=== PATIENT | male | born 1955 | race Caucasian/White ===

== ENCOUNTER 2016-12-29 05:47 | Day surgery (SDC) | payer OTHER ==
[2016-12-22 16:20] VITALS: BMI 31.3
[2016-12-29] MEDS ORDERED: SODIUM CHLORIDE 0.9% 1,000 ML IV SCH ×2 (05:57→08:00)
[2016-12-29 06:52] VITALS: TEMP 98.8
[2016-12-29] MEDS ORDERED: fentaNYL (PF) 50 MCG/ML 2 ML AMP ONE (07:28)
[2016-12-29] MEDS ORDERED: LIDOCAINE 1% INJ 10MG/ML (20 ML MDV) ONE (07:28)
[2016-12-29] MEDS ORDERED: PROPOFOL 10 MG/ML 20 ML VIAL IV ONE (07:28)
[2016-12-29] MEDS ORDERED: BENZOCAINE SPRAY 100 APPLIC/CAN MUCOUS MEM ONE ×2 (07:30→07:32)
[2016-12-29] MEDS ORDERED: SODIUM CHLORIDE 0.9% 500 ML IV ONE (07:30)
[2016-12-29 07:36] LABS: Potassium 5.1 mmol/L (3.5-5.1)
[2016-12-29] MEDS ORDERED: IBUPROFEN 200 MG TAB PO SCH (09:00)
[2016-12-29] MEDS ORDERED: BRINZOLAMIDE LEFT EYE SCH (09:00)
[2016-12-29] MEDS ORDERED: FUROSEMIDE 20 MG TAB PO SCH (09:00)
[2016-12-29] MEDS ORDERED: APIXABAN 5 MG TAB PO SCH (09:00)
[2016-12-29] MEDS ORDERED: TIMOLOL BOTH EYES SCH (09:00)
[2016-12-29] MEDS ORDERED: NON-FORMULARY DRUG (Omeprazole 20 MG) PO SCH (09:00)
[2016-12-29] MEDS ORDERED: MULTIVIT MIN PO SCH (09:00)
[2016-12-29] MEDS ORDERED: LYCOPENE PO SCH (09:00)
[2016-12-29] MEDS ORDERED: [UNRECOGNIZED DRUG - OTHER] PO SCH (09:00)
[2016-12-29] MEDS ORDERED: LUT PO SCH (09:00)
[2016-12-29 09:02] VITALS: PULSE 42; RESP 18
[2016-12-29 09:05] VITALS: BP 106/58
--- NOTE | 2016-12-29 10:15 | ECHOT ---
DATE OF SERVICE: 12/29/2016 CLINICAL INFORMATION: INDICATION: Evaluation of left atrial appendage. PROCEDURE: After explaining the procedure to patient as well as risks and complications, his blood pressure, heart rate, O2 saturation were monitored. The throat was sprayed with Cetacaine, after receiving sedation state per anesthesia department, the probe was introduced into the esophagus without difficulty. Images were obtained. Following that, the probe was removed. There were no immediate complications. FINDINGS: Left atrial size is dilated. Left atrial appendage is normal. Severe spontaneous contrast was noted. The aortic valve appears to be normal. Evidence of mitral valve repair was noted. Tricuspid valve is normal. The descending thoracic aortic appears to be normal. There was no pericardial effusion. The left ventricular systolic function was mildly impaired with mild global hypokinesis with an ejection fraction of 45 to 50%. Contrast bubble study revealed no evidence of shunting across the interatrial septum. Doppler pulse wave obtained revealed no evidence of shunting across the interatrial septum. There is mild tricuspid regurgitation. CONCLUSION: 1. Dilated left atrium with normal appearance of left atrial appendage and evidence of severe spontaneous contrast. 2. Mitral valve repair with no evidence of significant regurgitation. 3. Mild global hypokinesis. 4. No evidence of shunting across the interatrial septum. 5. Normal appearance of the descending thoracic aorta. 6. No pericardial effusion. MTDD
--- NOTE | 2016-12-29 10:17 | CE ---
DATE OF SERVICE: 12/29/2016 INDICATION: Atrial fibrillation. After explaining the procedure to the patient as well as risks and complications, his blood pressure, heart rate, O2 saturation was monitored. After obtaining sedated state by anesthesia department and performing transesophageal echocardiogram, a synchronized biphasic cardioversion using 200 joules was performed with holiness of normal sinus rhythm. There was no immediate complication.
[2016-12-29] MEDS ORDERED: ATENOLOL 50 MG TAB PO SCH (21:00)
[2016-12-29] MEDS ORDERED: LATANOPROST 0.005% OPHTH DROPS 2.5 ML BTL BOTH EYES SCH (21:00)
[2016-12-29] MEDS ORDERED: LISINOPRIL 20 MG TAB PO SCH (21:00)
== END 2016-12-29 10:45 | disposition home or self-care (01) ==
LOC: CATHCVL 05:47
PROVIDERS: ATTEND Internal Medicine Interventional Cardiology
DX: I07.1 Rheumatic tricuspid insufficiency (principal); I48.2 Chronic atrial fibrillation; Z79.01 Long term (current) use of anticoagulants; I71.2 Thoracic aortic aneurysm, without rupture; I42.9 Cardiomyopathy, unspecified; I49.9 Cardiac arrhythmia, unspecified; I10 Essential (primary) hypertension; I73.9 Peripheral vascular disease, unspecified; I82.409 Acute embolism and thrombosis of unspecified deep veins of unspecified lower extremity; I38 Endocarditis, valve unspecified; Z79.02 Long term (current) use of antithrombotics/antiplatelets; Z79.899 Other long term (current) drug therapy; E78.5 Hyperlipidemia, unspecified; H40.9 Unspecified glaucoma; K21.9 Gastro-esophageal reflux disease without esophagitis
CPT/HCPCS: 93312; 93320; 93005; 93325; 92960; 80048; J2001; J3010; J2704; 99152

== ENCOUNTER → 2017-03-04 | Outpatient (CLI) | payer OTHER ==
--- NOTE | 2017-03-04 16:36 | CONS ---
DATE OF CONSULTATION: CONSULTATION/NEW PATIENT EVALUATION A 62-year-old gentleman who has been evaluated in the Sleep Center for possible obstructive sleep apnea-hypopnea syndrome. HISTORY OF PRESENT ILLNESS/SLEEP-WAKE EVALUATION: SLEEP SCHEDULE: Patient's usual sleep schedule is from 10:00 p.m. to 7:00 a.m. FALLING ASLEEP: He does not have any problem with falling asleep. No TV in bedroom. DURING SLEEP: He sleeps in different positions with his . He wakes up from sleep 2 times with nocturia. He has quite loud snoring with possible episodes of stopped breathing during the sleep. DURING THE DAY/WAKE STATE: During the day, he usually does not take any naps. [place] Sleepiness Scale is 6. PAST MEDICAL HISTORY: Positive for atrial fibrillation with sinus, converted to normal sinus by cardioversion, hypertension, glaucoma, stones in gallbladder. MEDICATIONS: Eliquis, amiodarone, lisinopril, atenolol, Advil, eyedrops for glaucoma. PAST SURGICAL HISTORY: None. He was prepared for cholecystectomy, but because he developed a atrial fibrillation it was not done. SOCIAL HISTORY: Negative for smoking. Alcohol consumption, occasional. REVIEW OF SYSTEMS: Awakenings from sleep, snoring, sometimes tiredness and sleepiness during the day. No fevers. No double vision. No recent chest pain. No shortness of breath. No abdominal pain. No bleeding episodes. No blood in urine. No seizure episodes. FAMILY HISTORY: Hypertension, heart problems, stroke, arthritis, bronchitis, sleep apnea, snoring, headaches, acid reflux, restless legs. PHYSICAL EXAMINATION: GENERAL: During physical exam, gentleman without distress. VITAL SIGNS: BP 141/69, HR 52, RR 16. Height 5 feet 4 inches. Weight 206. BMI 35.3. Neck 17-1/4 inches in circumference. Temp is 98.1. Oxygen saturation at room air 98%. HEENT: PERRLA, EOMI. Evaluation of oropharynx showed extremely low position of soft palate. NECK: Supple. No JVD. Thyroid is not palpable. LUNGS: Clear to percussion and to auscultation. Good air exchange. No wheezing or rhonchi. HEART: S1, S2 regular. No murmurs, gallops or rubs. ABDOMEN: Obese. Soft and nontender. Bowel sounds are present. No organomegaly appreciated. EXTREMITIES: 1+ ankle edema. No clubbing or cyanosis. BIOLOGICAL INSPECTOR: Awake, alert, and oriented x3. Cranial nerves 2 to 7 intact. There is no fasciculation or atrophy noted. No focal deficits observed. IMPRESSION: 1. Snoring awakenings from sleep with nocturia, low position of soft palate, possibly witnessed episodes of stopped breathing during sleep, obstructive sleep apnea-hypopnea syndrome. 2. Obesity; body mass index 35.3. 3. History of atrial fibrillation converted to normal sinus rhythm by cardioversion. 4. Hypertension. 5. Glaucoma. 6. History of stones in gallbladder. 7. Swelling of legs 1+. PLAN: 1. Polysomnography for evaluation of patient's breathing during sleep. 2. CPAP/BiPAP titration if sleep study confirms obstructive sleep apnea-hypopnea syndrome. 3. Preferable position during sleep on the side. 4. No driving if patient feels any sleepiness. Patient is aware of civil and criminal liability for unsafe driving. 5. I will see patient for follow-up visit to explain results of the testing and following plan. Thank you very much for referring this patient for consultation. Sincerely, Farooq Alston MD, PhD, FAASM. Diplomat of [place] [employer], Sleep Medicine Board by [employer] Worker of [facility] [place]
== END | disposition home or self-care (01) ==
LOC: SLEEP 13:27
PROVIDERS: ATTEND Internal Medicine
DX: R35.1 Nocturia (principal); I10 Essential (primary) hypertension; E66.9 Obesity, unspecified; Z68.35 Body mass index [BMI] 35.0-35.9, adult; Z79.1 Long term (current) use of non-steroidal anti-inflammatories (NSAID); Z79.899 Other long term (current) drug therapy; Z79.01 Long term (current) use of anticoagulants
CPT/HCPCS: 99211

== ENCOUNTER → 2017-03-11 | Outpatient (CLI) | payer OTHER ==
[2017-03-11 10:08] LABS: Calcium 9.8 mg/dL (8.4-10.2); Potassium 5.1 mmol/L (3.5-5.1); Total Bilirubin 0.9 mg/dL (0.2-1.3); Total Protein 8.3 g/dL (6.3-8.2)
== END | disposition home or self-care (01) ==
LOC: LABWHC1 09:12
PROVIDERS: ATTEND Internal Medicine Interventional Cardiology
DX: I48.0 Paroxysmal atrial fibrillation (principal)
CPT/HCPCS: 36415; 80053; 84443

== ENCOUNTER → 2017-08-05 | Outpatient (CLI) | payer OTHER ==
--- NOTE | 2017-08-05 23:06 | PN ---
PROGRESS NOTE DATE OF SERVICE: 08/05/2017 This patient is a 62-year-old gentleman who has been followed in the sleep center for treatment of severe obstructive sleep apnea-hypopnea syndrome. Recently patient had a home sleep apnea test and CPAP titration. I discussed the results of these tests with the patient in detail. Apnea-hypopnea index during the home sleep study test was 65.7 with oxygen desaturation to 58%. The patient was started on treatment with CPAP. He brought his CPAP unit with him today. According to him, he is able to use the equipment every night for the whole night and he feels extreme improvements while he is using CPAP, compared with his previous experience. He sleeps better. He feels significantly better during the day. He takes his machine with him while he is traveling. I checked his CPAP unit. CPAP pressure is 14 cm of water. Usage is 30 out of 30 nights for more than 4 hours; average 7.7 hours. Apnea-hypopnea index reading from the machine is only 2.2, which is in normal range. Leak is borderline at 37 L/minute. The patient is using a full-face mask. [place] Sleepiness Scale today is 1. MEDICATIONS: 1. Eliquis. 2. Amiodarone. 3. Lisinopril. 4. Atenolol. 5. Advil. 6. Eye drops. PHYSICAL EXAM: The patient is a pleasant 62-year-old gentleman without distress. VITAL SIGNS: BP 142/77, HR 62, RR 16, weight 209, temperature 97.8. Oxygen saturation at room air 98%. HEENT: PERRLA, EOMI. Evaluation of oropharynx showed tongue protrudes midline; extremely low position of soft palate. NECK: Supple. No JVD. Thyroid is not palpable. LUNGS: Clear to percussion and to auscultation. Good air exchange. No wheezing or rhonchi. HEART: S1, S2 irregularly irregular. ABDOMEN: Soft, non-tender. Bowel sounds present. EXTREMITIES: No clubbing or cyanosis. AMBULATORY SERVICE REPRESENTATIVE: Awake, alert and oriented x3. Cranial nerves 2 to 7 intact. There is no fasciculation or atrophy noted. No focal deficits observed. IMPRESSION: 1. Severe obstructive sleep apnea-hypopnea syndrome; apnea-hypopnea index 68.7 with oxygen desaturation to 58%, controlled with CPAP at 14 cm of water. Patient demonstrated 100% compliance with treatment, benefitting from treatment. 2. Obesity. 3. Some periodic limb movements have been documented during titration. No clinical problems with any kicking at night. 4. History of atrial fibrillation. 5. Hypertension. 6. Glaucoma. 7. One plus ankle edema. PLAN: 1. Continue treatment with CPAP every night for the whole night. 2. Losing weight. 3. Sleep hygiene with regular time in bed for at least 8 hours. 4. No driving if feeling any sleepiness. 5. Follow-up visit in 10 months or earlier if patient has any problems. Thank you very much for allowing me to participate in the management of your patient. Sincerely, Farooq Alston MD, PhD, FAASM Diplomat of [place] [employer] [employer] [place] [employer] Home Health Billing Specialist of [facility] [place] CATHERINE / WILDA: [id number] /
== END ==
LOC: SLEEP 15:30
PROVIDERS: ATTEND Internal Medicine
DX: G47.33 Obstructive sleep apnea (adult) (pediatric) (principal); E66.9 Obesity, unspecified; G47.61 Periodic limb movement disorder; I10 Essential (primary) hypertension; H40.9 Unspecified glaucoma; R60.0 Localized edema; Z79.899 Other long term (current) drug therapy

== ENCOUNTER → 2017-08-23 | Outpatient (CLI) | payer OTHER ==
--- NOTE | 2017-08-23 12:02 | CT ---
EXAMINATION TYPE: CT angio chest DATE OF EXAM: 08/23/2017 COMPARISON: 07/17/2015 HISTORY: Patient has no complaints at time of study. Follow up for known aortic aneurysm. CT DLP: 937.9 mGycm CONTRAST: CTA thoracic aorta with 3-D reconstruction is performed and with IV Contrast, patient injected with 1 00 mL of Omnipaque 350. Contrast CTA of the thoracic aorta was performed from the lung apex through the upper abdomen. 3D re construction imaging obtained at a separate workstation. CT Chest: THORACIC AORTA: Stable 4 cm ascending thoracic aortic aneurysm without complicating factor. Aortic ar ch and descending thoracic aorta are normal caliber. Mild atheromatous changes seen. There is no patricia dence for dissection or periaortic collection. LUNGS: The lungs are clear and free of infiltrate or atelectasis. No pulmonary nodule or mass is det ected. No pleural effusion or CT evidence of interstitial lung disease. MEDIASTINUM: No evidence for mediastinal hematoma. The heart is not enlarged. No evidence for med iastinal mass or adenopathy. HILAR STRUCTURES: No evidence for mass. No hilar adenopathy is appreciated. OTHER: No significant abnormality. IMPRESSION- Stable ascending thoracic aortic aneurysm without complicating factor.
== END | disposition home or self-care (01) ==
LOC: RADCTMAIN 10:53
PROVIDERS: ATTEND Internal Medicine Interventional Cardiology
DX: I71.2 Thoracic aortic aneurysm, without rupture (principal)
CPT/HCPCS: 71275; Q9967

== ENCOUNTER → 2018-08-10 | Outpatient (CLI) | payer MEDICARE, OTHER ==
--- NOTE | 2018-08-10 20:22 | US ---
EXAMINATION TYPE: US kidneys/renal and bladder DATE OF EXAM: 08/10/2018 COMPARISON: CT, US ABD limited CLINICAL HISTORY: R94.4 Abnoral Results of Kidney Function Studies. Recent abnormal labs EXAM MEASUREMENTS: Right Kidney: 9.6 x 5.1 x 4.2 cm Left Kidney: 10.3 x 5.4 x 4.3 cm Right Kidney: ?small amount of perinephric edema anterior to kidney, otherwise appeared wnl Left Kidney: ?small amount of perinephric edema anterior to kidney, otherwise appeared wnl Bladder: wnl Bilateral Jets seen: No IMPRESSION: We could not demonstrate ureteral jets. Urinary bladder appears normal. There is possible perinephric edema that could relate to medical renal disease. No hydronephrosis. Po ssible edema is a change compared to the abdomen ultrasound of 09/04/2016.
== END | disposition home or self-care (01) ==
LOC: RADUSWWP 16:06
PROVIDERS: ATTEND Internal Medicine Geriatric Medicine
DX: N28.9 Disorder of kidney and ureter, unspecified (principal)
CPT/HCPCS: 76770

== ENCOUNTER 2018-08-16 06:23 | Day surgery (SDC) | payer MEDICARE, OTHER ==
[2018-08-09 12:41] VITALS: BMI 32.3
[~2018-08-16 06:23] MED LIST: SODIUM CHLORIDE 0.9% 1,000 ML IV SCH
[2018-08-16 07:07] VITALS: TEMP 98.7
[2018-08-16] MEDS ORDERED: PROPOFOL 10 MG/ML 20 ML VIAL IV ONE (07:23)
[2018-08-16] MEDS ORDERED: LIDOCAINE 1% INJ 10MG/ML (20 ML MDV) ONE (07:23)
[2018-08-16] MEDS ORDERED: fentaNYL (PF) 50 MCG/ML 2 ML AMP ONE (07:23)
[2018-08-16 07:34] LABS: Calcium 9.3 mg/dL (8.4-10.2)
[2018-08-16 07:40] LABS: Potassium 5.2 mmol/L (3.5-5.1)
[2018-08-16] MEDS ORDERED: SODIUM CHLORIDE 0.9% 1,000 ML IV SCH (08:00)
[2018-08-16 08:04] VITALS: RESP 18
[2018-08-16] MEDS ORDERED: LEVOTHYROXINE 100 MCG TAB PO SCH (09:00)
[2018-08-16] MEDS ORDERED: MAGNESIUM 500 MG PO SCH (09:00)
[2018-08-16] MEDS ORDERED: INSTAFLEX PO SCH (09:00)
[2018-08-16] MEDS ORDERED: NON-FORMULARY DRUG (Multivit-Min/Fa/Lycopen/Lutein [Centrum Silver Tablet] 1 EACH) PO SCH (09:00)
[2018-08-16] MEDS ORDERED: ALLOPURINOL 100 MG TAB PO SCH (09:00)
[2018-08-16] MEDS ORDERED: IBUPROFEN 200 MG TAB PO SCH (09:00)
[2018-08-16] MEDS ORDERED: TIMOLOL BOTH EYES SCH (09:00)
[2018-08-16] MEDS ORDERED: APIXABAN 5 MG TAB PO SCH (09:00)
[2018-08-16] MEDS ORDERED: BRINZOLAMIDE LEFT EYE SCH (09:00)
[2018-08-16 09:17] VITALS: PULSE 50
--- NOTE | 2018-08-16 09:48 | PCN ---
PROCEDURE NOTE INDICATION: Atrial fibrillation. PROCEDURE: After obtaining transthoracic echocardiogram, obtaining sedated state per Anesthesia Department, a synchronized biphasic 200 joule cardioversion was performed with christianity normal sinus rhythm. There was no immediate complication. CATHERINE / MICHELLEN: [id number] /
--- NOTE | 2018-08-16 09:55 | ECHOT ---
TRANSESOPHAGEAL ECHOCARDIOGRAM INDICATION: Atrial fibrillation. PROCEDURE: After explaining the procedure to the patient, its risks and complications, blood pressure, heart rate, O2 saturation was monitored. The throat was sprayed with Cetacaine. He received sedation per the Anesthesia Department. The probe was introduced into the esophagus without difficulty. Images were obtained. Following that, the probe was removed. There was no immediate complication. FINDINGS: Severe biatrial enlargement was noted, more noted on the left atrium with severe spontaneous contrast. The left atrial appendage is large with spontaneous contrast. The aortic valve revealed mild thickening of the tricuspid aortic valve. Evidence of mitral annuloplasty was noted with mild thickening of the mitral valve leaflets. The tricuspid valve is normal. The left ventricular size and is normal systolic function was mildly impaired with ejection fraction 50%. The descending thoracic aorta appears to be normal. Contrast bubble study revealed no evidence of shunting across the interatrial septum. No pericardial effusion was noted. Doppler pulse was obtained revealed mild mitral and tricuspid regurgitation. There was no evidence of shunting by color Doppler study. MMODL / IJN: [id number] /
[2018-08-16 10:26] VITALS: BP 120/70
[2018-08-16] MEDS ORDERED: LISINOPRIL 20 MG TAB PO SCH (21:00)
[2018-08-16] MEDS ORDERED: LATANOPROST 0.005% OPHTH DROPS 2.5 ML BTL BOTH EYES SCH (21:00)
[2018-08-16] MEDS ORDERED: ATENOLOL 50 MG TAB PO SCH (21:00)
== END 2018-08-16 10:20 | disposition home or self-care (01) ==
LOC: CATHCVL 06:23
PROVIDERS: ATTEND Internal Medicine Interventional Cardiology
DX: I08.1 Rheumatic disorders of both mitral and tricuspid valves (principal); I48.1 Persistent atrial fibrillation; I42.8 Other cardiomyopathies; I10 Essential (primary) hypertension; I71.2 Thoracic aortic aneurysm, without rupture; G47.33 Obstructive sleep apnea (adult) (pediatric); Z98.890 Other specified postprocedural states; Z79.01 Long term (current) use of anticoagulants; Z79.890 Hormone replacement therapy; Z79.899 Other long term (current) drug therapy
CPT/HCPCS: 93312; 93320; 93325; 92960; 80048; J2001; J3010; J2704

== ENCOUNTER → 2018-09-01 | Outpatient (CLI) | payer MEDICARE, OTHER ==
--- NOTE | 2018-09-01 18:38 | PN ---
PROGRESS NOTE DATE OF SERVICE: 09/01/2018 This patient is a 63-year-old gentleman who has been followed in Sleep Center for treatment of severe obstructive sleep apnea-hypopnea syndrome. Patient is successfully continuing to use his CPAP equipment every night for the whole night, taking it with him for vacation. He sleeps well with it. [place] Sleepiness Scale today is only 1. I checked his CPAP unit. CPAP pressure is 14 cm of water. Usage is 100% of the nights for more than 4 hours. Average usage is 8.4 hours. Leak is only 14 L/minute, which is normal. Apnea-hypopnea index is 2.7, which is perfect. MEDICATIONS: Medications are the same: 1. Atenolol. 2. Eliquis. 3. Synthroid. 4. Advil. 5. Centrum Silver. 6. Lisinopril. 7. Eye drops. PHYSICAL EXAMINATION: GENERAL: A pleasant patient without any distress. VITAL SIGNS: BP 145/82, HR 59, RR 16, height 5 feet 3 inches, weight 204.2, body mass index 35.5, temperature 98.4, oxygen saturation at room air 97% HEENT: PERRLA, EOMI. Evaluation of oropharynx showed tongue protrudes midline. Extremely low position of soft palate. NECK: Supple. No JVD. Thyroid is not palpable. LUNGS: Clear to percussion and to auscultation. Good air exchange. No wheezing or rhonchi. HEART: S1, S2 regular. ABDOMEN: Soft and nontender. Bowel sounds are present. No organomegaly appreciated. EXTREMITIES: No clubbing or cyanosis. LOCK CORNER MACHINE OPERATOR: Awake, alert, and oriented X3. Cranial nerves 2 to 7 intact. There is no fasciculation or atrophy. noted. No focal deficits observed. IMPRESSION: 1. Severe obstructive sleep apnea-hypopnea syndrome, fully controlled with CPAP at 14 cm of water. Patient demonstrated 100% compliance with treatment, benefitting from treatment. 2. History of atrial fibrillation, status post cardioversion. Sounds normal sinus rhythm at the present time. 3. Hypertension. 4. History of glaucoma. 5. Obesity. Patient lost 8 pounds since his last visit one year ago. PLAN: 1. Continue treatment with CPAP with the same regimen of pressure every night for the whole night. 2. We will maintain prescriptions for all necessary CPAP supplies, including mask, tube, filters. 3. Continue losing weight. 4. No driving if feeling any sleepiness. 5. Regular cleaning of the machine and supplies. 6. Follow-up visit in one year. Thank you very much for allowing me to participate in the management of your patient. Sincerely, Farooq Alston MD, PhD, FAASM Diplomat of [place] [employer] [place] [employer] Mold Sprayer of [facility] [place] MMODL / MICHELLEN: [id number] /
== END | disposition home or self-care (01) ==
LOC: SLEEP 14:44
PROVIDERS: ATTEND Internal Medicine
DX: G47.33 Obstructive sleep apnea (adult) (pediatric) (principal); I10 Essential (primary) hypertension; E66.9 Obesity, unspecified; Z68.35 Body mass index [BMI] 35.0-35.9, adult; Z86.69 Personal history of other diseases of the nervous system and sense organs; Z86.79 Personal history of other diseases of the circulatory system; Z79.01 Long term (current) use of anticoagulants; Z79.899 Other long term (current) drug therapy; Z79.1 Long term (current) use of non-steroidal anti-inflammatories (NSAID); Z98.890 Other specified postprocedural states; Z99.89 Dependence on other enabling machines and devices

== ENCOUNTER → 2018-09-13 | Outpatient (CLI) | payer MEDICARE, OTHER ==
--- NOTE | 2018-09-14 08:16 | CT ---
EXAMINATION TYPE: CT angio chest DATE OF EXAM: 09/13/2018 COMPARISON: 08/23/2017 HISTORY: f/u aortic aneurysm CT DLP: 1098.7 mGycm. Automated Exposure Control for Dose Reduction was Utilized. CONTRAST: CTA scan of the thorax is performed with IV Contrast, patient injected with 100 mL of Isovue 370, pul monary embolism protocol. MIP Images are created on CT scanner and reviewed. FINDINGS: LUNGS: The lungs are grossly clear, there is no concerning parenchymal mass or nodule identified. Min imal lingular pleural parenchymal scarring is present. There is no pleural effusion or pneumothorax seen. The tracheobronchial tree is patent. MEDIASTINUM: The unenhanced images demonstrate no evidence of intramural hematoma. The previously see n thoracic aortic aneurysm measuring 4 cm on the prior exam is stable (measuring 3.8 and 3.9 cm in so me locations). There is satisfactory enhancement of the pulmonary artery and its branches, there is n o CT evidence for pulmonary embolism. There are no greater than 1 cm hilar or mediastinal lymph node s. No cardiomegaly or pericardial effusion is seen. Mitral valve replacement is noted. OTHER: Gallbladder surgically absent. Mild multilevel degenerative changes of the thoracic spine are again seen. Median sternotomy wires are seen in conjunction with mediastinal clips from cardiac valvu lar repair. IMPRESSION: Stable borderline thoracic aortic aneurysm measuring up to 4.0 cm. No evidence of intramu ral hematoma or dissection.
== END | disposition home or self-care (01) ==
LOC: RADCTMAIN 16:25
PROVIDERS: ATTEND Internal Medicine Interventional Cardiology
DX: I71.2 Thoracic aortic aneurysm, without rupture (principal)
CPT/HCPCS: 82565; 84520; 71275; 36415; Q9967

== ENCOUNTER 2018-11-06 10:02 | Emergency (ER) | payer MEDICARE, OTHER ==
[2018-11-06] MEDS ORDERED: SODIUM CHLORIDE 0.9% 1,000 ML IV STA (10:09)
[2018-11-06 10:14] VITALS: TEMP 97.5
--- NOTE | 2018-11-06 10:14 | ED ---
General Adult HPI - General Stated complaint: Altered Mental Time Seen by Provider: 11/06/18 10:08 Source: patient, EMS, RN notes reviewed Mode of arrival: EMS Limitations: altered mental status, physical limitation - History of Present Illness Initial comments: Patient is a pleasant 63-year-old male presenting to the emergency department with concern for stroke. Patient last known well was last night. Patient states at this point he feels fine and has no complaints. Majority of pertinent history is taken from EMS. Patient denies any weakness. Patient denies any confusion or speech problems. Patient does admit to having a mild frontal headache however states this is chronic from using his CPAP machine. EMS states there is been flaccid weakness in the left side - Related Data Home Medications Medication Instructions Recorded Confirmed Brinzolamide [Azopt 1% Ophth Susp] 1 drop LEFT EYE BID 06/18/14 11/06/18 Lisinopril [Zestril] 20 mg PO HS 06/18/14 11/06/18 Timolol [Betimol 0.5% Ophth Soln] 1 drop BOTH EYES DAILY 06/18/14 11/06/18 Apixaban [Eliquis] 5 mg PO BID 11/03/16 11/06/18 Atenolol [Tenormin] 50 mg PO HS 11/03/16 11/06/18 Ibuprofen [Advil] 200 mg PO BID 11/03/16 11/06/18 Latanoprost Ophth [Xalatan 0.005%] 1 drops BOTH EYES HS 11/03/16 11/06/18 Multivit-Min/FA/Lycopen/Lutein 1 each PO QAM 11/03/16 11/06/18 [Centrum Silver Tablet] Allopurinol [Zyloprim] 100 mg PO QAM 08/09/18 11/06/18 Instaflex 1 cap PO DAILY 08/09/18 11/06/18 Levothyroxine Sodium [Synthroid] 100 mcg PO QAM 08/09/18 11/06/18 Magnesium 500 mg PO DAILY 08/09/18 11/06/18 Allergies Allergy/AdvReac Type Severity Reaction Status Date / Time No Known Allergies Allergy Verified 11/06/18 10:54 Review of Systems ROS Statement: Those systems with pertinent positive or pertinent negative responses have been documented in the HPI. ROS Other: All systems not noted in ROS Statement are negative. Constitutional: Denies: fever Eyes: Denies: eye pain ENT: Denies: ear pain Respiratory: Denies: cough, dyspnea Cardiovascular: Denies: chest pain Endocrine: Denies: fatigue Gastrointestinal: Denies: abdominal pain Genitourinary: Denies: dysuria Musculoskeletal: Denies: back pain Skin: Denies: rash Neurological: Reports: as per HPI Past Medical History Past Medical History: Atrial Fibrillation, Deep Vein Thrombosis (DVT), Hypertension Additional Past Medical History / Comment(s): back pain, states having a MULUGETA to check for a hx. of a clot in his heart, hx. of DVT,. glaucoma. History of Any Multi-Drug Resistant Organisms: None Reported Past Surgical History: Heart Catheterization, Hernia Repair Additional Past Surgical History / Comment(s): heart surgery for congenital defect, Past Anesthesia/Blood Transfusion Reactions: No Reported Reaction Smoking Status: Never smoker - Past Family History Mother Family Medical History: No Reported History General Exam Limitations: altered mental status, physical limitation General appearance: alert, in no apparent distress, other (Left-sided neglect) Head exam: Present: atraumatic Eye exam: Present: normal appearance, PERRL, other (Patient unable to gaze to the left.) ENT exam: Present: normal oropharynx Neck exam: Present: normal inspection Respiratory exam: Present: normal lung sounds bilaterally Cardiovascular Exam: Present: regular rate, normal rhythm Expanded Peripheral pulses: 2+: Radial (R), Radial (L), Dorsalis Pedis (R), Dorsalis Pedis (L) GI/Abdominal exam: Present: soft. Absent: tenderness Extremities exam: Present: normal inspection. Absent: pedal edema, calf tenderness Neurological exam: Present: alert, altered Expanded Neurological exam: Present: protecting the airway, other (Mild slurred speech. Left-sided neglect.) Patient oriented to: Present: person, place. Absent: time Cranial nerves: EOM's Intact: Abnormal Left (Patient unable to gaze to the left) , Facial Sensation: Abnormal Left Sensory exam: Upper Extremity Light Touch: Abnormal Left, Lower Extremity Light Touch: Abnormal Left Motor strength exam: RUE: 5, LUE: 0, RLE: 4, LLE: 0 Eye Response: (4) open spontaneously Motor Response: (6) obeys commands Verbal Response: (4) confused conversation Psychiatric exam: Present: normal affect, normal mood Skin exam: Present: normal color. Absent: rash Course Vital Signs 11/06/18 10:12 Temperature 97.5 F L Pulse Rate 98 Respiratory 20 Rate Blood Pressure 142/100 - Reevaluation(s) Reevaluation #1: 11/06/18 11:07 Case discussed in detail with Dr. salter who did review the films and has concern for right MCA occlusion and bilateral infarcts. He is concern for significant disease and recommends transfer to [facility] for his evaluation as well as neurosurgery. 11/06/18 11:09 Patient reevaluated and unchanged. is present and updated. She agrees patient is full care at this time and agrees with transfer. Case was also discussed with Dr. Silveira at [facility] emergency who will accept transfer. Patient is not a TPA candidate secondary to last known well is greater than 4.5 hours. In addition patient is on Eliquis. Medical Decision Making - Lab Data Result diagrams: 11/06/18 10:15 11/06/18 10:15 Lab Results 11/06/18 11/06/18 11/06/18 Range/Units 10:15 10:15 10:15 WBC 6.0 (3.8-10.6) k/uL RBC 4.62 (4.30-5.90) m/uL Hgb 14.0 (13.0-17.5) gm/dL Hct 44.7 (39.0-53.0) % MCV 96.8 (80.0-100.0) fL MCH 30.3 (25.0-35.0) pg MCHC 31.4 (31.0-37.0) g/dL RDW 13.9 (11.5-15.5) % Plt Count 128 L (150-450) k/uL Neutrophils % 70 % Lymphocytes % 17 % Monocytes % 8 % Eosinophils % 2 % Basophils % 1 % Neutrophils # 4.2 (1.3-7.7) k/uL Lymphocytes # 1.0 (1.0-4.8) k/uL Monocytes # 0.5 (0-1.0) k/uL Eosinophils # 0.1 (0-0.7) k/uL Basophils # 0.0 (0-0.2) k/uL PT (9.0-12.0) sec INR (<1.2) APTT (22.0-30.0) sec Sodium 142 (137-145) mmol/L Potassium 5.1 (3.5-5.1) mmol/L Chloride 109 H (98-107) mmol/L Carbon Dioxide 26 (22-30) mmol/L Anion Gap 7 mmol/L BUN 28 H (9-20) mg/dL Creatinine 1.25 (0.66-1.25) mg/dL Est GFR (CKD-EPI)AfAm 70 (>60 ml/min/1.73 sqM) Est GFR (CKD-EPI)NonAf 61 (>60 ml/min/1.73 sqM) Glucose 113 H (74-99) mg/dL Calcium 9.3 (8.4-10.2) mg/dL Total Bilirubin 0.6 (0.2-1.3) mg/dL AST 44 (17-59) U/L ALT 50 (21-72) U/L Alkaline Phosphatase 57 (38-126) U/L Total Creatine Kinase 410 H (55-170) U/L Total Protein 7.1 (6.3-8.2) g/dL Albumin 3.8 (3.5-5.0) g/dL 12/16/18 Range/Units 10:15 WBC (3.8-10.6) k/uL RBC (4.30-5.90) m/uL Hgb (13.0-17.5) gm/dL Hct (39.0-53.0) % MCV (80.0-100.0) fL MCH (25.0-35.0) pg MCHC (31.0-37.0) g/dL RDW (11.5-15.5) % Plt Count (150-450) k/uL Neutrophils % % Lymphocytes % % Monocytes % % Eosinophils % % Basophils % % Neutrophils # (1.3-7.7) k/uL Lymphocytes # (1.0-4.8) k/uL Monocytes # (0-1.0) k/uL Eosinophils # (0-0.7) k/uL Basophils # (0-0.2) k/uL PT 12.0 (9.0-12.0) sec INR 1.1 (<1.2) APTT 23.7 (22.0-30.0) sec Sodium (137-145) mmol/L Potassium (3.5-5.1) mmol/L Chloride (98-107) mmol/L Carbon Dioxide (22-30) mmol/L Anion Gap mmol/L BUN (9-20) mg/dL Creatinine (0.66-1.25) mg/dL Est GFR (CKD-EPI)AfAm (>60 ml/min/1.73 sqM) Est GFR (CKD-EPI)NonAf (>60 ml/min/1.73 sqM) Glucose (74-99) mg/dL Calcium (8.4-10.2) mg/dL Total Bilirubin (0.2-1.3) mg/dL AST (17-59) U/L ALT (21-72) U/L Alkaline Phosphatase (38-126) U/L Total Creatine Kinase (55-170) U/L Total Protein (6.3-8.2) g/dL Albumin (3.5-5.0) g/dL Critical Care Time Critical Care Time: Yes Total Critical Care Time: 32 Disposition Clinical Impression: Cerebrovascular accident Disposition: OTHER INSTITUTION NOT DEFINED Is patient prescribed a controlled substance at d/c from ED?: No Referrals: Martin Menendez MD [Primary Care Provider] - 1-2 days Time of Disposition: 11:11 - Out of Hospital Transfer - Req. Specs Out of Hospital Transfer - Requested Specifics: Other Emergency Center
[2018-11-06 10:37] LABS: Basophils % (A) 1 %; Eosinophils # (A) 0.1 k/uL (0-0.7); Eosinophils % (A) 2 %; HCT 44.7 % (39.0-53.0); Lymphocytes % (A) 17 %; MCH 30.3 pg (25.0-35.0); MCHC 31.4 g/dL (31.0-37.0); MCV 96.8 fL (80.0-100.0); Mean Platelet Volume 7.2; Monocytes # (A) 0.5 k/uL (0-1.0); Monocytes % (A) 8 %; Neutrophils # (A) 4.2 k/uL (1.3-7.7); Neutrophils % (A) 70 %; Platelet Count 128 k/uL (150-450); RBC 4.62 m/uL (4.30-5.90); RDW 13.9 % (11.5-15.5)
[2018-11-06 10:44] LABS: INR 1.1 (<1.2); Partial Thromboplastin Time 23.7 sec (22.0-30.0)
[2018-11-06 10:45] LABS: Albumin 3.8 g/dL (3.5-5.0); Calcium 9.3 mg/dL (8.4-10.2); Potassium 5.1 mmol/L (3.5-5.1); Total Bilirubin 0.6 mg/dL (0.2-1.3); Total Protein 7.1 g/dL (6.3-8.2)
[2018-11-06 11:10] LABS: Creatine Kinase MB 7.6 ng/mL (0.0-2.4)
--- NOTE | 2018-11-06 11:12 | CT ---
EXAMINATION TYPE: CT brain wo con for TPA DATE OF EXAM: 11/06/2018 COMPARISON: NONE HISTORY: Neuro deficits CT DLP: 1112.8 mGycm Automated exposure control for dose reduction was used. FINDINGS: There are mild generalized changes of sulcal prominence and ventriculomegaly, compatible with atrophi c change. There is evidence of bilateral occipital parietal infarct as well as a right frontal infarc t. There is also been a previous lacunar infarct in the caudate nucleus on the right. There is loss o f differentiation between the tirado and white matter as well as diffuse lucency in the distribution of the right MCA. There is mild associated mass effect. There is no midline shift. There is no intracra nial blood. Visualized portions of the paranasal sinuses and mastoids are clear. IMPRESSION: 1. EVOLVING RIGHT MCA INFARCT. 2. MULTIPLE OLD INFARCTS. 3. ATROPHIC CHANGE.
[2018-11-06 11:16] VITALS: RESP 18
--- NOTE | 2018-11-06 11:19 | CT ---
EXAMINATION TYPE: CT angio head neck DATE OF EXAM: 11/06/2018 HISTORY: Altered mental changes COMPARISON: CT scan of earlier today. CT DLP: 711.6 mGycm. Automated Exposure Control for Dose Reduction was Utilized. TECHNIQUE: CTA scan of the neck is performed with IV Contrast, patient injected with 100 mL of Isovu e 370, axial images are obtained, coronal and sagittal reformatted images are reviewed. Three-D recon structed images are created on an independent workstation and reviewed. FINDINGS: There is elevation of the left hemidiaphragm. Visualized portions of the lungs are clear. The heart is mildly enlarged. Prevertebral soft tissues are normal. Vertebral body height and alignment are maintained. Atlantoaxial relationships are normal. There is diffuse degenerative disc disease and hypertrophic spondylosis throughout the cervical spine . There is diffuse uncovertebral joint disease. Visualized portions of the paranasal sinuses and mastoids are clear. There is a normal origin of the great vessels. The left vertebral artery is mildly dominant. There is no significant carotid stenosis. There is no significant calcified plaque. There is an occlusion of the M1 segment of the right middle cerebral artery. There is degenerative de creased arborization on the right. Both anterior cerebral arteries are patent. Both posterior cerebra l arteries are patent. No sizable aneurysm is visualized. IMPRESSION: 1. NO SIGNIFICANT CAROTID STENOSIS. 2. OCCLUSION OF THE M1 SEGMENT OF THE RIGHT MIDDLE CEREBRAL ARTERY WITH DECREASED ARBORIZATION ON THE RIGHT. 3. DEGENERATIVE CHANGE WITHIN THE SPINE.
[2018-11-06 11:38] LABS: Troponin I 0.035 ng/mL (0.000-0.034)
[2018-11-06 11:42] VITALS: BP 152/94; PULSE 60
== END 2018-11-06 11:52 | disposition other institution (70) ==
LOC: EC 10:02
DX: I63.9 Cerebral infarction, unspecified (principal); I48.91 Unspecified atrial fibrillation; I10 Essential (primary) hypertension; H40.9 Unspecified glaucoma; Z86.718 Personal history of other venous thrombosis and embolism; Z79.01 Long term (current) use of anticoagulants; Z79.1 Long term (current) use of non-steroidal anti-inflammatories (NSAID); Z79.899 Other long term (current) drug therapy; Z95.818 Presence of other cardiac implants and grafts
CPT/HCPCS: 99291 ×2; 96360 ×2; 36415; 93005; 80053; 82550; 82553; 84484; 85025; 85610; 85730; 70496; 70450; 70498; Q9967

== ENCOUNTER → 2019-08-14 | Outpatient (CLI) | payer MEDICARE, OTHER ==
[2019-08-14 13:31] LABS: HCT 39.8 % (39.0-53.0); HGB 12.8 gm/dL (13.0-17.5); MCH 30.9 pg (25.0-35.0); MCHC 32.2 g/dL (31.0-37.0); MCV 95.9 fL (80.0-100.0); Mean Platelet Volume 7.5; Platelet Count 240 k/uL (150-450); RBC 4.15 m/uL (4.30-5.90); RDW 15.4 % (11.5-15.5); WBC 7.7 k/uL (3.8-10.6)
[2019-08-14 14:44] LABS: Albumin 4.2 g/dL (3.5-5.0); Calcium 9.7 mg/dL (8.4-10.2); Potassium 4.4 mmol/L (3.5-5.1); Total Bilirubin 0.6 mg/dL (0.2-1.3)
--- NOTE | 2019-08-15 04:40 | CT ---
EXAMINATION TYPE: CT angio chest DATE OF EXAM: 08/14/2019 COMPARISON: 09/13/2018 HISTORY: 64-year-old male Follow up thoracic aortic aneurysm. TECHNIQUE: Contiguous axial scanning of the chest performed without and with IV Contrast, patient inj ected with 100 mL of Isovue 370. Coronal/sagittal MIP reconstructions performed. 3-D reconstructions generated on a dedicated independent workstation. CT DLP: 1313.4 mGycm Automated exposure control for dose reduction was used. FINDINGS: Median sternotomy wires are present with mitral annuloplasty ring. Heart upper limits of normal in si ze without pericardial effusion. Aortic root mildly ectatic at 3.6 cm. Ascending aorta ectatic and 3.8 cm versus 3.9 to 4.0 cm measured, previously. Conventional arch vessel branching anatomy with minimal atherosclerotic calcifications. Descending thoracic aorta is normal caliber. No evidence for aortic dissection. No thoracic lymphadenopathy by CT size criteria. Apparent mild circumferential wall thickening distal half of the thoracic esophagus may be secondary to nondistention, for example, refer to axial image 26. Some generalized hazy and reticular densities throughout the lungs likely from low lung volumes and a reas of atelectasis. Minimal emphysematous changes noted. Stable strandy scarring or atelectasis infe rior lingula. Visualized upper abdomen shows cholecystectomy clips. Bones: DISH throughout the thoracic spine. IMPRESSION: 1. ASCENDING THORACIC AORTA CURRENTLY MEASURED ECTATIC AT 3.8 CM VERSUS 3.9 TO 4.0 CM, PREVIOUSLY, NO T SIGNIFICANTLY CHANGED. 2. SOME CIRCUMFERENTIAL WALL THICKENING OF THE DISTAL HALF OF THE THORACIC ESOPHAGUS MAY BE SECONDARY TO NONDISTENTION. CORRELATE FOR ANY ESOPHAGEAL SYMPTOMS TO THE NEED FOR DIRECT VISUALIZATION TO E XCLUDE A MUCOSAL LESION. 3. COPD WITH MILD EMPHYSEMA.
== END | disposition home or self-care (01) ==
LOC: RADCTMAIN 12:55
PROVIDERS: ATTEND Internal Medicine Interventional Cardiology
DX: I71.2 Thoracic aortic aneurysm, without rupture (principal)
CPT/HCPCS: 80061; 80053; 84443; 85027; 71275; 36415; Q9967

== ENCOUNTER 2019-11-08 20:00 | Observation (INO) | payer MEDICARE, OTHER ==
[2019-11-08] MEDS ORDERED: SODIUM CHLORIDE 0.9% 1,000 ML IV STA (20:28)
--- NOTE | 2019-11-08 20:50 | ED ---
General Adult HPI - General Chief complaint: Neuro Symptoms/Deficit Stated complaint: Poss Stroke Time Seen by Provider: 11/08/19 20:16 Source: patient, EMS Mode of arrival: EMS Limitations: no limitations - History of Present Illness Initial comments: Dictation was produced using [employer] dictation software. please excuse any grammatical, word or spelling errors. Chief Complaint: 64-year-old male brought in by family members for concern of seizure. History of Present Illness: 64-year-old male who has past medical history of CVA with left-sided deficits. Patient normally has slurred speech since stroke suffered last year. Patient was at dinner when he started having tonic clonic like activity. Patient was also postictal for several minutes. Family was concerned about patient emergency department. Patient is a poor historian however denies any complaints at this time. Cranial at bedside patient does not have a history of seizures. She has history of atrial fibrillation. He does take blood anticoagulation medication. The ROS documented in this emergency department record has been reviewed and confirmed by me. Those systems with pertinent positive or negative responses have been documented in the HPI. All other systems are other negative and/or noncontributory. PHYSICAL EXAM: General Impression: Alert and oriented x3, not in acute distress HEENT: Normocephalic atraumatic, extra-ocular movements intact, pupils equal and reactive to light bilaterally, mucous membranes moist. Cardiovascular: Heart regular rate and rhythm, S1&S2 audible, no murmurs, rubs or gallops Chest: Lungs clear to auscultation bilaterally, no rhonchi, no wheeze, no rales Abdomen: Bowel sounds present, abdomen soft, non-tender, non-distended, no organomegaly Musculoskeletal: Pulses present and equal in all extremities, no peripheral edema Motor: no focal deficits noted Neurological: CN II-XII grossly intact, mildly slurred speech, left-sided paralysis Skin: Intact with no visualized rashes Psych: Normal affect and mood ED course: 64-year-old male with clinical presentation concerning for generalized seizure. He describes a postictal event. Patient has no history of seizures. seizure workup is initiated. Upon arrival are within acceptable limits. Family reports that patient has residual left-sided deficits. No noted neurologic changes were noted on physical examination. Laboratory evaluation obtained. CBC unremarkable. Metabolic panel is grossly unremarkable. Computed tomography scan of the brain is unremarkable. Patient was or the emergency department without any episodes of seizures. Given patie nt's clinical presentation is concerning no new onset seizures. He'll be admitted with consultation to neurology. Discussed patient case with Dr. Winter who is willing to accept patients care. EKG interpretation: Ventricular rate is 6, A. fib, QS 126, QTC 475. No AR prolongation, no QTC prolongation, no ST or T-wave changes noted. EKG compared to 11/06/2018 showing no changes. Overall, this EKG is unremarkable - Related Data Home Medications Medication Instructions Recorded Confirmed Brinzolamide [Azopt 1% Ophth Susp] 1 drop LEFT EYE BID 06/18/14 11/06/18 Lisinopril [Zestril] 20 mg PO HS 06/18/14 11/06/18 Timolol [Betimol 0.5% Ophth Soln] 1 drop BOTH EYES DAILY 06/18/14 11/06/18 Apixaban [Eliquis] 5 mg PO BID 11/03/16 11/06/18 Atenolol [Tenormin] 50 mg PO HS 11/03/16 11/06/18 Ibuprofen [Advil] 200 mg PO BID 11/03/16 11/06/18 Latanoprost Ophth [Xalatan 0.005%] 1 drops BOTH EYES HS 11/03/16 11/06/18 Multivit-Min/FA/Lycopen/Lutein 1 each PO QAM 11/03/16 11/06/18 [Centrum Silver Tablet] Allopurinol [Zyloprim] 100 mg PO QAM 08/09/18 11/06/18 Instaflex 1 cap PO DAILY 08/09/18 11/06/18 Levothyroxine Sodium [Synthroid] 100 mcg PO QAM 08/09/18 11/06/18 Magnesium 500 mg PO DAILY 08/09/18 11/06/18 Allergies Allergy/AdvReac Type Severity Reaction Status Date / Time No Known Allergies Allergy Verified 11/06/18 10:54 Review of Systems ROS Statement: Those systems with pertinent positive or pertinent negative responses have been documented in the HPI. ROS Other: All systems not noted in ROS Statement are negative. Past Medical History Past Medical History: Atrial Fibrillation, CVA/TIA, Deep Vein Thrombosis (DVT), Hypertension Additional Past Medical History / Comment(s): back pain, states having a MULUGETA to check for a hx. of a clot in his heart, hx. of DVT,. glaucoma. stroke in 2018 with left sided weakness History of Any Multi-Drug Resistant Organisms: None Reported Past Surgical History: Heart Catheterization, Hernia Repair Additional Past Surgical History / Comment(s): heart surgery for congenital defect, Past Anesthesia/Blood Transfusion Reactions: No Reported Reaction Past Psychological History: No Psychological Hx Reported Smoking Status: Never smoker Past Alcohol Use History: Occasional Past Drug Use History: None Reported - Past Family History Mother Family Medical History: No Reported History General Exam Limitations: no limitations Course Vital Signs 11/08/19 20:09 Temperature 98.2 F Pulse Rate 87 Respiratory 18 Rate Blood Pressure 119/92 O2 Sat by Pulse 96 Oximetry Medical Decision Making - Lab Data Result diagrams: 11/08/19 20:41 11/08/19 20:41 Lab Results 11/08/19 11/08/19 Range/Units 20:41 20:41 WBC 6.7 (3.8-10.6) k/uL RBC 4.20 L (4.30-5.90) m/uL Hgb 13.2 (13.0-17.5) gm/dL Hct 41.1 (39.0-53.0) % MCV 97.9 (80.0-100.0) fL MCH 31.5 (25.0-35.0) pg MCHC 32.2 (31.0-37.0) g/dL RDW 13.0 (11.5-15.5) % Plt Count 203 (150-450) k/uL Neutrophils % 66 % Lymphocytes % 15 % Monocytes % 8 % Eosinophils % 9 % Basophils % 1 % Neutrophils # 4.4 (1.3-7.7) k/uL Lymphocytes # 1.0 (1.0-4.8) k/uL Monocytes # 0.5 (0-1.0) k/uL Eosinophils # 0.6 (0-0.7) k/uL Basophils # 0.1 (0-0.2) k/uL Sodium 141 (137-145) mmol/L Potassium 4.3 (3.5-5.1) mmol/L Chloride 98 (98-107) mmol/L Carbon Dioxide 32 H (22-30) mmol/L Anion Gap 11 mmol/L BUN 37 H (9-20) mg/dL Creatinine 1.32 H (0.66-1.25) mg/dL Est GFR (CKD-EPI)AfAm 65 (>60 ml/min/1.73 sqM) Est GFR (CKD-EPI)NonAf 56 (>60 ml/min/1.73 sqM) Glucose 134 H (74-99) mg/dL Calcium 9.7 (8.4-10.2) mg/dL Total Bilirubin 0.6 (0.2-1.3) mg/dL AST 29 (17-59) U/L ALT 26 (4-49) U/L Alkaline Phosphatase 96 (38-126) U/L Total Protein 8.3 H (6.3-8.2) g/dL Albumin 4.5 (3.5-5.0) g/dL Disposition Clinical Impression: New onset seizure Disposition: ADMITTED IP TO THIS [facility] Condition: Fair Referrals: Martin Menendez MD [Primary Care Provider] - 1-2 days Decision Time: 23:11
[2019-11-08 20:58] LABS: Basophils # (A) 0.1 k/uL (0-0.2); Basophils % (A) 1 %; Eosinophils # (A) 0.6 k/uL (0-0.7); Eosinophils % (A) 9 %; HCT 41.1 % (39.0-53.0); HGB 13.2 gm/dL (13.0-17.5); Lymphocytes % (A) 15 %; MCH 31.5 pg (25.0-35.0); MCHC 32.2 g/dL (31.0-37.0); MCV 97.9 fL (80.0-100.0); Monocytes # (A) 0.5 k/uL (0-1.0); Monocytes % (A) 8 %; Neutrophils # (A) 4.4 k/uL (1.3-7.7); Neutrophils % (A) 66 %; Platelet Count 203 k/uL (150-450); WBC 6.7 k/uL (3.8-10.6)
[2019-11-08 21:12] LABS: Albumin 4.5 g/dL (3.5-5.0); Calcium 9.7 mg/dL (8.4-10.2); Potassium 4.3 mmol/L (3.5-5.1); Total Bilirubin 0.6 mg/dL (0.2-1.3); Total Protein 8.3 g/dL (6.3-8.2)
--- NOTE | 2019-11-08 21:22 | CT ---
EXAMINATION TYPE: CT brain wo con DATE OF EXAM: 11/08/2019 COMPARISON: 11/06/2018 HISTORY: Weakness CT DLP: 1099.4 mGycm Automated exposure control for dose reduction was used. There is large area of hypodensity in the right cerebral hemisphere related to old right middle cereb ral artery infarct. There is no mass effect nor midline shift. There is no sign of intracranial hemor rhage. There is also old left posterior parietal infarct that measures 4 cm. Calvarium is intact. IMPRESSION: Old cerebral infarct. No acute intracranial abnormality. No adverse change compared to old exam.
[2019-11-08] MEDS ORDERED: ACETAMINOPHEN TAB 325 MG TAB PO PRN (23:07)
[2019-11-08] MEDS ORDERED: LORazepam 2 MG/ML INJ IV PRN (23:07)
[2019-11-08] MEDS ORDERED: NALOXONE 0.4 MG/ML 1 ML VIAL IV PRN (23:07)
[2019-11-08] MEDS ORDERED: ONDANSETRON 4 MG/2 ML VIAL IVP PRN (23:07)
[2019-11-08] MEDS ORDERED: SODIUM CHLORIDE 0.9% 1,000 ML IV SCH (23:15)
[2019-11-09 02:37] LABS: Appearance,Urine Clear (Clear); Bilirubin,Urine Negative (Negative); Blood,Urine Negative (Negative); Color,Urine Yellow; Glucose,Urine (UA) Negative (Negative); Hyaline Casts,Urine 1 /lpf (0-2); Ketones,Urine Negative (Negative); Leukocyte Esterase,Urine Negative (Negative); Mucus,Urine Rare /hpf; Nitrite,Urine Negative (Negative); PH, Urine 5.5 (5.0-8.0); Protein,Urine 1+ (Negative); RBC,Urine 1 /hpf (0-5); Specific Gravity,Urine 1.018 (1.001-1.035); Sperm,Urine Rare /hpf; Urobilinogen,Urine <2.0 mg/dL (<2.0); WBC,Urine 1 /hpf (0-5)
[2019-11-09 06:17] VITALS: RESP 18
[2019-11-09 08:00] VITALS: TEMP 98.5
[2019-11-09] MEDS ORDERED: traMADol 50 MG TAB PO PRN (13:38)
[2019-11-09] MEDS ORDERED: ACETAMINOPHEN TAB 325 MG TAB PO PRN (13:38)
[2019-11-09] MEDS ORDERED: LISINOPRIL 20 MG TAB PO SCH (13:45)
[2019-11-09 14:51] VITALS: BP 105/70; PULSE 66
--- NOTE | 2019-11-09 15:32 | P.HPIM ---
History of Present Illness H&P Date: 11/09/19 (This document was sent both his H&P and discharge summary) 64 year old male with past medical history of CVA with left-sided paralysis in 2018, with history of DVT, atrial fibrillation, hypertension, with history of menstrual annuloplasty ring, COPD comes in with acute tonic-clonic seizures that started yesterday while having dinner with his . The seizure lasted few minutes and patient bit his tongue and in the process. No urinary incontinence was noted. Patient didn't have any history of seizure in the past. Patient does not take any seizure medication but does take tramadol which can lower the seizure potential. On evaluation of the mitral rectum of 98.2 pulse 87 blood pressure 119/92 on evaluation of the vitals patient has a creatinine of 1.32 with this patient's chronic. CK and lactic acid was normal. Veins 80 was positive for old right middle cerebral artery infarct no acute abnormalities noted. Neurology was consulted Review of Systems Constitutional: Denies chills, Denies fever, Denies lethargy, Denies malaise, Denies poor appetite, Denies weakness, Denies weight loss Eyes: denies decreased vision, denies diplopia, denies discharge, denies pain Ears: deny: decreased hearing Ears, nose, mouth and throat: Denies dental pain, Denies headache, Denies nasal discharge, Denies nose pain Cardiovascular: Denies chest pain, Denies decreased exercise tolerance, Denies edema, Denies high blood pressure, Denies irregular heart beat, Denies palpitations, Denies paroxysmal nocturnal dyspnea, Denies rapid heart beat, Denies shortness of breath Respiratory: Denies congestion, Denies cough, Denies cough with sputum, Denies dyspnea, Denies home oxygen, Denies wheezing Gastrointestinal: Denies abdominal pain, Denies change in bowel habits, Denies coffee ground emesis, Denies early satiety, Denies excessive gas, Denies heartburn, Denies hematemesis, Denies hematochezia, Denies loss of appetite, Denies nausea, Denies vomiting Genitourinary: Denies dysuria, Denies flank pain, Denies kidney stones, Denies menorrhagia, Denies urgency, Denies urinary frequency Musculoskeletal: Denies gait dysfunction, Denies limitation of motion, Denies morning stiffness, Denies muscle cramps Integumentary: Denies rash, Denies wounds, Denies brittle nails, Denies change in hair/nails, Denies darkening of skin Neurological: Wheelchair-bound use hover lift to transfer with paralysis of the left upper and lower extremity Psychiatric: Denies anxiety, Denies depression Endocrine: Denies excessive sweating, Denies excessive thirst, Denies high blood sugars, Denies palpitations Hematologic/Lymphatic: Denies easy bruising, Denies lymphadenopathy Past Medical History Past Medical History: Atrial Fibrillation, CVA/TIA, Deep Vein Thrombosis (DVT), Eye Disorder, Hypertension, Sleep Apnea/CPAP/BIPAP, Thyroid Disorder, Vascular Disorder Additional Past Medical History / Comment(s): 11/14/18 CVA with L sided weakness/some speech difficulty, wheelchair bound, cardiomyopathy, thoracic aneurysm, fluid retention, L leg DVT, SHUKRI with CPap, gout R arm, bilateral glaucoma, hypothyroid, chronic low back pain History of Any Multi-Drug Resistant Organisms: None Reported Past Surgical History: Cardiac Valve Replacement, Cholecystectomy, Heart Catheterization, Hernia Repair, Tonsillectomy Additional Past Surgical History / Comment(s): TEEs, cardioversion, mitral valve repair, R inguinal hernia repair, colonoscopy Past Anesthesia/Blood Transfusion Reactions: No Reported Reaction Smoking Status: Never smoker - Past Family History Mother Family Medical History: No Reported History Father Family Medical History: Congestive Heart Failure (CHF) Additional Family Medical History / Comment(s): Father of CHF-pt cannot recall at what age. Medications and Allergies Home Medications Medication Instructions Recorded Confirmed Type Lisinopril [Zestril] 20 mg PO DAILY 06/18/14 11/09/19 History Timolol [Betimol 0.5% Ophth Soln] 1 drop BOTH EYES DAILY 06/18/14 11/09/19 History Atenolol [Tenormin] 50 mg PO HS 11/03/16 11/09/19 History Latanoprost Ophth [Xalatan 0.005%] 1 drop BOTH EYES HS 11/03/16 11/09/19 History Multivit-Min/FA/Lycopen/Lutein 1 tab PO DAILY 11/03/16 11/09/19 History [Centrum Silver Tablet] Allopurinol [Zyloprim] 100 mg PO DAILY 08/09/18 11/09/19 History Levothyroxine Sodium [Synthroid] 100 mcg PO AC-BRKFST 08/09/18 11/09/19 History Acetaminophen Tab [Tylenol] 650 mg PO Q6H PRN 11/08/19 11/09/19 History Atorvastatin [Lipitor] 40 mg PO HS 11/08/19 11/09/19 History Baclofen 5 mg PO AC-SUPPER 11/08/19 11/09/19 History Dabigatran [Pradaxa] 150 mg PO BID 11/08/19 11/09/19 History Dorzolamide 2% [Trusopt 2%] 1 drops LEFT EYE HS 11/08/19 11/09/19 History Furosemide [Lasix] 20 mg PO DAILY 11/08/19 11/09/19 History Gabapentin [Neurontin] 300 mg PO BID 11/08/19 11/09/19 History PARoxetine HCL [Paxil] 20 mg PO DAILY 11/08/19 11/09/19 History Sennosides/Docusate Sodium [Senna 1 tab PO HS 11/08/19 11/09/19 History Plus 8.6-50 mg Tablet] Acetaminophen with Codeine 1 tab PO Q8HR PRN 3 Days #9 tab 11/09/19 Rx [Tylenol w/codeine #3] Allergies Allergy/AdvReac Type Severity Reaction Status Date / Time No Known Allergies Allergy Verified 11/08/19 23:54 Physical Exam Vitals: Vital Signs Temp Pulse Pulse Resp BP BP Pulse Ox 11/09/19 14:44 98.5 F 66 18 105/70 94 L 11/09/19 07:54 98.5 F 60 18 95/51 98 11/09/19 06:17 98 F 70 18 92/77 96 11/09/19 02:00 100 20 98/64 97 11/09/19 01:00 101 H 18 105/72 98 11/09/19 00:00 98.2 F 100 16 96/78 97 11/08/19 23:26 112 H 20 115/88 96 11/08/19 23:08 98.3 F 92 18 115/88 100 11/08/19 20:09 98.2 F 87 18 119/92 96 Intake and Output 11/09/19 11/09/19 11/09/19 06:59 14:59 22:59 Intake Total 240 Balance 240 Intake: Oral 240 Other: Voiding Method Urinal # Voids 1 # Bowel Movements 0 Weight 95.254 kg - Constitutional General appearance: cooperative, no acute distress, obese - EENT Eyes: anicteric sclerae, PERRLA, normal appearance ENT: hearing grossly normal - Neck Neck: no lymphadenopathy, normal ROM, no other, no rigidity, no stridor, no thyromegaly - Respiratory Respiratory: bilateral: CTA, negative: diminished, dullness, rales, rhonchi - Cardiovascular Rhythm: Irregularly irregular Heart sounds: normal: S1, S2 Abnormal Heart Sounds: no systolic murmur, no diastolic murmur, no rub, no S3 Gallop, no S4 Gallop, no click, no other - Gastrointestinal General gastrointestinal: normal bowel sounds, soft nontender - Integumentary Integumentary: no rash - Neurologic Neurologic: CNII-XII intact - Musculoskeletal Musculoskeletal: Wheelchair bound, 0/5 movement in the upper and the lower extremity on the left with swelling noted in the bilateral lower extremities with focal discoloration of the toes on the right - Psychiatric Psychiatric: A&O x's 3, appropriate affect Results CBC & Chem 7: 11/08/19 20:41 11/08/19 20:41 Labs: Abnormal Lab Results - Last 24 Hours (Table) 11/08/19 11/08/19 11/09/19 Range/Units 20:41 20:41 02:25 RBC 4.20 L (4.30-5.90) m/uL Carbon Dioxide 32 H (22-30) mmol/L BUN 37 H (9-20) mg/dL Creatinine 1.32 H (0.66-1.25) mg/dL Glucose 134 H (74-99) mg/dL Total Protein 8.3 H (6.3-8.2) g/dL Urine Protein 1+ H (Negative) Urine Mucus Rare H (None) /hpf Thrombosis Risk Factor Assmnt - DVT/VTE Prophylaxis DVT/VTE Prophylaxis: Pharmacologic Prophylaxis ordered - Choose All That Apply Any of the Below Risk Factors Present?: Yes Each Factor Represents 1 point: Obesity (BMI >25) Other Risk Factors: Yes Each Risk Factor Represents 2 Points: Age 61-74 years Each Risk Factor Represents 3 Points: History of DVT/PE Other congenital or acquired thrombophilia - If yes, enter type in comment: No Thrombosis Risk Factor Assessment Total Risk Factor Score: 6 Thrombosis Risk Factor Assessment Level: High Risk Assessment and Plan Plan: #1 acute onset of seizure likely secondary to history of CVA in the past. Neurology consulted EEG ordered. Will be initiated on Keppra dosing per neurology. #2 history of CVA with residual left-sided paralysis likely cardioembolic with history of atrial fibrillation patient currently on pradaxa of 150 twice a day #3 history of gout continue allopurinol 100 mg daily #4 atrial fibrillation continue atenolol 50 mg daily at bedtime with Pradaxa 150 mg twice a day #5 hyperlipidemia continue Lipitor 40 mg daily at bedtime #6 cardiomyopathy continue Lasix 20 mg by mouth daily patient instructed to keep the legs elevated as there is purplish discoloration of the toes but bilateral peripheral pulses were present #7 history of mitral valve annuloplasty continue Lasix 20 mg by mouth daily asymptomatic #8 history of COPD stable #9 hypertension continue lisinopril 20 mg by mouth daily atenolol 50 mg by mouth daily Lasix 20 mg by mouth daily #10 depression continue Paxil 20 mg by mouth daily #11 hypothyroidism continue levothyroxine 100 mg by mouth with breakfast #12 neuropathy continue gabapentin 300 twice a day CODE STATUS full code DVT prophylaxis currently on Pradaxa Disposition patient to go home and follow up with neurology as outpatient
[2019-11-09] MEDS ORDERED: GABAPENTIN 300 MG CAP PO SCH (21:00)
[2019-11-09] MEDS ORDERED: LATANOPROST 0.005% OPHTH DROPS 2.5 ML BTL BOTH EYES SCH (21:00)
[2019-11-09] MEDS ORDERED: DORZOLAMIDE HCL 2% DROPS 10 ML BTL LEFT EYE SCH (21:00)
[2019-11-09] MEDS ORDERED: DABIGATRAN 150 MG CAP PO SCH (21:00)
[2019-11-09] MEDS ORDERED: ATENOLOL 50 MG TAB PO SCH (21:00)
[2019-11-09] MEDS ORDERED: SENNOSIDES-DOCUSATE SODIUM 1 EACH TAB PO SCH (21:00)
[2019-11-09] MEDS ORDERED: ATORVASTATIN 40 MG TAB PO SCH (21:00)
--- NOTE | 2019-11-09 21:47 | P.CNNES ---
History of Present Illness Consult date: 11/09/19 Reason for Consult: New-onset seizure Chief complaint: New-onset seizure History of Present Illness: HISTORY OF PRESENT ILLNESS: Thank you for allowing me to evaluate Mr. Jesus Soto. Mr. Soto is a 64 year-old man with PMhx of stroke with residual L-sided deficits and slurred speech, who presented to [facility] for a seizure episode. and daughter at bedside. was present when the episode occurred. She states that patient started moving his L arm a bit and then moved onto his R arm after which he became stiff. Patient never lost consciousness but he was confused for about 15 minutes. Patient did not have any tongue biting, urinary/bowel incontinence. is not aware of patient having any similar episodes in the past. Patient does not remember the episode. states that patient needed to be cardioverted multiple times for his a. fib. During that time, patient got a MULUGETA done where atrial thrombus was found, started on Eliquis and a repeat imaging showed it was gone. However, afterwards, he had a stroke (unclear if ischemic or hemorrhagic, but it appears there was definitely either hemorrhage or hemorrhagic conversion). Patient was switched to Pradaxa. Denies any recent sickness, fever, nausea, vomiting, dizziness, abdominal pain, double/blurry vision. PAST MEDICAL HISTORY: Stroke, a.fib, DVT, HTN PAST SURGICAL HISTORY: heart catheterization, hernia repair HOME MEDICATIONS: lisinopril, timolol, pradaxa, atenolol, ibuprofen, multivitamin, allopurinol, synthroid, magnesium ALLERGIES: NKDA SOCIAL HISTORY: Never smoker. Occasional EtOH drinker REVIEW OF SYSTEMS: The 14 systems are reviewed and no additional points are identified compared to the review of systems documented history and physical PHYSICAL EXAMINATION: VITAL SIGNS: T 98.5 HR 60 RR 18 BP 95/51 O2 sat 98% on 2L of O2 via NC GEN.: NAD, pleasant and cooperative HEENT: NCAT, sclera without icterus NECK: Supple SKIN AND EXTREMITIES: Warm to touch, no edema NEURO: MENTAL STATUS: Patient alert and oriented to self, place, time. Able to name the current president. Mild dysarthria, able to name and repeat, following all commands readily. No right and left disorientation, neglect. CRANIAL NERVES II THROUGH XII: II: Pupils are equal and reactive to light symmetrically. No afferent pupillary defect. Visual loza are intact. III, IV, : No ptosis. Extraocular movements full. No nystagmus. V: Facial sensation intact from V1-3. VII. L facial droop VIII: Hearing intact to finger rub bilaterally. IX, X: Symmetric palate elevation. XI: Shoulder shrug intact. XII: Tongue midline without fasciculation or atrophy. MOTOR: Normal bulk. LUE with increased tone. Strength is 5/5 in RUE/RLE and 0/5 in LUE/LLE SENSORY: Intact to light touch, temperature in all 4 extremities (although family states patient has complained of not feeling very well on his L side). REFLEXES: 2+ throughout. Toes are downgoing. L foot clonus COORDINATION: R finger to nose intact. No dysmetria. GAIT: deferred DIAGNOSTIC TESTING: LABORATORY: WBC 6.7 Hgb 13.2 Platelt 203 Na 141 K 4.3 Cl 98 CO2 32 BUN 37 Cr 1.32 glucose 134 AST 29 ALT 26 AlkPhos 96 urinalysis neg IMAGING: CT Head w/o contrast 11/08/19: Old R MCA cerebral infarct. No acute intracranial abnormality. No adverse change compared to old exam. ASSESSMENT/RECOMMENDATIONS: 64 year-old man with PMhx of stroke with residual L-sided deficits and slurred speech, who presented to [facility] for a seizure episode. Patient with a recent history of R MCA stroke, which is a big risk factor for patient developing seizures. Although this is patient's first life-time seizure, as patient with such history, will start patient on Keppra 750mg BID. Patient has seen Dr. Villalta and Dr. Terrazas previously. Patient will follow up with either one within 3-4 weeks. Patient is not able to drive, does not take bath. Discussed ED precautions with family. Patient is stable for discharge home from neurological perspective. Past Medical History Past Medical History: Atrial Fibrillation, CVA/TIA, Deep Vein Thrombosis (DVT), Eye Disorder, Hypertension, Sleep Apnea/CPAP/BIPAP, Thyroid Disorder, Vascular Disorder Additional Past Medical History / Comment(s): 11/14/18 CVA with L sided weakness/some speech difficulty, wheelchair bound, cardiomyopathy, thoracic aneurysm, fluid retention, L leg DVT, SHUKRI with CPap, gout R arm, bilateral glaucoma, hypothyroid, chronic low back pain History of Any Multi-Drug Resistant Organisms: None Reported Past Surgical History: Cardiac Valve Replacement, Cholecystectomy, Heart Catheterization, Hernia Repair, Tonsillectomy Additional Past Surgical History / Comment(s): TEEs, cardioversion, mitral valve repair, R inguinal hernia repair, colonoscopy Past Anesthesia/Blood Transfusion Reactions: No Reported Reaction Smoking Status: Never smoker - Past Family History Mother Family Medical History: No Reported History Father Family Medical History: Congestive Heart Failure (CHF) Additional Family Medical History / Comment(s): Father of CHF-pt cannot recall at what age. Medications and Allergies Home Medications Medication Instructions Recorded Confirmed Type Lisinopril [Zestril] 20 mg PO DAILY 06/18/14 11/09/19 History Timolol [Betimol 0.5% Ophth Soln] 1 drop BOTH EYES DAILY 06/18/14 11/09/19 History Atenolol [Tenormin] 50 mg PO HS 11/03/16 11/09/19 History Latanoprost Ophth [Xalatan 0.005%] 1 drop BOTH EYES HS 11/03/16 11/09/19 History Multivit-Min/FA/Lycopen/Lutein 1 tab PO DAILY 11/03/16 11/09/19 History [Centrum Silver Tablet] Allopurinol [Zyloprim] 100 mg PO DAILY 08/09/18 11/09/19 History Levothyroxine Sodium [Synthroid] 100 mcg PO AC-BRKFST 08/09/18 11/09/19 History Acetaminophen Tab [Tylenol] 650 mg PO Q6H PRN 11/08/19 11/09/19 History Atorvastatin [Lipitor] 40 mg PO HS 11/08/19 11/09/19 History Baclofen 5 mg PO AC-SUPPER 11/08/19 11/09/19 History Dabigatran [Pradaxa] 150 mg PO BID 11/08/19 11/09/19 History Dorzolamide 2% [Trusopt 2%] 1 drops LEFT EYE HS 11/08/19 11/09/19 History Furosemide [Lasix] 20 mg PO DAILY 11/08/19 11/09/19 History Gabapentin [Neurontin] 300 mg PO BID 11/08/19 11/09/19 History PARoxetine HCL [Paxil] 20 mg PO DAILY 11/08/19 11/09/19 History Sennosides/Docusate Sodium [Senna 1 tab PO HS 11/08/19 11/09/19 History Plus 8.6-50 mg Tablet] Acetaminophen with Codeine 1 tab PO Q8HR PRN 3 Days #9 tab 11/09/19 Rx [Tylenol w/codeine #3] levETIRAcetam [Keppra] 750 mg PO Q12HR #60 tab 11/09/19 Rx Allergies Allergy/AdvReac Type Severity Reaction Status Date / Time No Known Allergies Allergy Verified 11/08/19 23:54 Physical Examination - Vital Signs Vital Signs: Vital Signs Temp Pulse Pulse Resp BP BP Pulse Ox 11/09/19 07:54 98.5 F 60 18 95/51 98 11/09/19 06:17 98 F 70 18 92/77 96 11/09/19 02:00 100 20 98/64 97 11/09/19 01:00 101 H 18 105/72 98 11/09/19 00:00 98.2 F 100 16 96/78 97 11/08/19 23:26 112 H 20 115/88 96 11/08/19 23:08 98.3 F 92 18 115/88 100 11/08/19 20:09 98.2 F 87 18 119/92 96 Intake and Output 11/08/19 11/09/19 11/09/19 22:59 06:59 14:59 Intake Total 0 Balance 0 Intake: Oral 0 Other: Weight 95.254 kg 95.254 kg Results - Laboratory Findings CBC and BMP: 11/08/19 20:41 11/08/19 20:41 Abnormal Lab Findings: Abnormal Labs 11/08/19 11/08/19 11/09/19 20:41 20:41 02:25 RBC 4.20 L Carbon Dioxide 32 H BUN 37 H Creatinine 1.32 H Glucose 134 H Total Protein 8.3 H Urine Protein 1+ H Urine Mucus Rare H
[2019-11-10] MEDS ORDERED: LEVOTHYROXINE 100 MCG TAB PO SCH (07:30)
[2019-11-10] MEDS ORDERED: ALLOPURINOL 100 MG TAB PO SCH (09:00)
[2019-11-10] MEDS ORDERED: TIMOLOL 0.5% OPHTH DROPS 5 ML BTL BOTH EYES SCH (09:00)
[2019-11-10] MEDS ORDERED: MULTIVITAMINS, THERA 1 EACH TAB PO SCH (09:00)
[2019-11-10] MEDS ORDERED: FUROSEMIDE 20 MG TAB PO SCH (09:00)
[2019-11-10] MEDS ORDERED: PARoxetine 20 MG TAB PO SCH (09:00)
== END 2019-11-09 17:20 | disposition home health service (06) ==
LOC: EC 20:00 → 6NMEDSUR 11-09
PROVIDERS: ADMIT Internal Medicine; ATTEND Internal Medicine
DX: R56.9 Unspecified convulsions (principal); I69.354 Hemiplegia and hemiparesis following cerebral infarction affecting left non-dominant side; J44.9 Chronic obstructive pulmonary disease, unspecified; E03.9 Hypothyroidism, unspecified; E78.5 Hyperlipidemia, unspecified; F32.9 Major depressive disorder, single episode, unspecified; G62.9 Polyneuropathy, unspecified; I10 Essential (primary) hypertension; I42.9 Cardiomyopathy, unspecified; I48.91 Unspecified atrial fibrillation; Z79.01 Long term (current) use of anticoagulants; Z79.890 Hormone replacement therapy; Z79.899 Other long term (current) drug therapy; Z82.49 Family history of ischemic heart disease and other diseases of the circulatory system; Z86.718 Personal history of other venous thrombosis and embolism; Z95.2 Presence of prosthetic heart valve; Z99.3 Dependence on wheelchair; I69.328 Other speech and language deficits following cerebral infarction; Z87.74 Personal history of (corrected) congenital malformations of heart and circulatory system
CPT/HCPCS: 96360; 96361; 99285; 36415; 93005; 80053; 82550; 83605; 85025; 81001; 70450; G0378